=== PATIENT | female | born 1990 | race Asian ===

== ENCOUNTER 2019-11-26 17:50 | Inpatient (IN) ==
[2019-11-26] MEDS ORDERED: OXYTOCIN 30 UNITS/500 ML BAG IV PRN (18:25)
[2019-11-26] MEDS ORDERED: LACTATED RINGER'S 1,000 ML IV PRN (18:25)
[2019-11-26] MEDS ORDERED: LACTATED RINGER'S 1,000 ML IV SCH ×2 (18:30→19:28)
[2019-11-26 18:58] LABS: Hematocrit (blood only) 35.7 % (37-47); Mean Corpuscular Hemoglobin 31.1 pg (25-34); Mean Corpuscular Volume 92.5 fL (80-100); Mean Platelet Volume 11.7 fL (7.4-10.4); Platelet Count 237 K/uL (130-400); RDW Coefficient of Variation 13.7 % (11.5-14.5); RDW Standard Deviation 46.3 fL (36.4-46.3); Red Blood Count 3.86 M/uL (4.2-5.4); White Blood Count 10.92 K/uL (4.8-10.8)
[2019-11-26 19:02] LABS: Mean Corpuscular Hgb Conc 33.6 g/dL (32-36)
[2019-11-26] MEDS ORDERED: INFLUENZA VIRUS QUAD VACCINE 0.5 ML SYR IM ONE (19:26)
[2019-11-26] MEDS ORDERED: INFLUENZA ADMINISTRATION CHARGE ONE (19:26)
[2019-11-26] MEDS ORDERED: CITRIC ACID/SODIUM CITRATE 15 ML UDC PO SCH (19:45)
[2019-11-26] MEDS ORDERED: CEFAZOLIN 2000MG 2,000 MG/15 ML SYR IV SCH (19:45)
--- NOTE | 2019-11-26 19:48 | History & Physical Report ---
Date of Service November 26, 2019 Assessment & Plan (1) Premature rupture of membranes: (2) Vaginal septum affecting , antepartum: - heart rate tracing category 1 -No uterine activity on monitor -While the patient was aware of the possible uterine septum, she was not aware of the vaginal septum- -discussed with the patient the concerns of the pliability of the septum -Vagina very narrow at apex where septum meets the cervix -Concern about dilation of the septum in labor versus traumatic tearing of the septum -Because of the thickness and narrowness of the vagina, recommend section -Patient in partner ask multiple questions about the septum as well as the section -After a 90-minute discussion, the patient consents to the section -Risks, benefits, and alternatives to the discussed -Permit has been signed -Anesthesia and pediatrics notified History of Present Illness Primary Care Provider: NO PCP The patient is a 29-year-old 1 para 0 with an EDC of 05 December at 38+ weeks gestational age who presents to labor and delivery with spontaneous rupture of membranes. The patient was seen in the office today for an OB check and had a cervical examination. Afterward she began leaking fluid clear in nature she denies contractions. The patient transferred her obstetrical care to our practice at 24 weeks from [place]. Medical records were available from [place]. 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 She had growth scans done here which showed appropriate interval growth. At the patient's first digital examination at approximately 36 weeks gestational age a complete vaginal spec septum was noted extending the length of the vagina. The patient was unaware of the vaginal septum. Laboratory values for the show blood type of O+, antibody negative, rubella immune, hepatitis B negative, she had a normal 1 hour Glucola 28 weeks, and a negative third trimester beta strep culture. Allergies Allergy/AdvReac Type Severity Reaction Status Date / Time No Known Allergies Allergy Verified 11/26/19 08:34 Home Medications Home Medications Medication Instructions Recorded Confirmed Type breast pump #1 ea 11/09/19 11/26/19 Rx breast pump #1 ea 11/09/19 11/26/19 Rx vit 10-iron fum-folic 1 tab PO DAILY 11/26/19 11/26/19 History Patient History Medical History (Updated 11/26/19 @ 18:24 by Jacek Medina Jr, MD, FACOG) Abnormal biochemical finding on screening of mother Cervical cancer screening Family History (Updated 09/01/19 @ 14:06 by Ijeoma Vazquez) Father Hypertension Social History (Updated 09/01/19 @ 14:19 by Ijeoma Vazquez) Preferred Language: Peruvian Communication Ability: Effective Salvager Required: No Beliefs That Will Affect Care: None marital status: marital status details: Jaskaran DIAZ (31) [phone] Current Living Situation: Spouse Current Living Situation Comment: lives with spouse, no pets. 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 Cervix on the left side of the septum. Sterile speculum examination with gross rupture. Digital examination shows the cervix to be 2 to 3 cm dilated 75% and - 2. Minimal mobility of vaginal septum with thickness of approximately 1/2 cm. Results & Data Vital Signs (Past 12 Hours) Vital Signs Temp Pulse Resp BP 11/26/19 19:29 98.6 F 81 20 139/90 11/26/19 18:20 99.0 F 75 20 129/83 11/26/19 18:04 81 135/91 Coding Level of Care Code None Diagnoses Premature rupture of membranes O42.90 Vaginal septum affecting , antepartum O34.60; Q52.10
--- NOTE | 2019-11-26 20:07 | Anesthesiology Consultation ---
Date of Service November 26, 2019 Assessment & Plan (1) Encounter for pre-operative examination: Chart Review Chart Review: Patient NOT seen in Pre Admission Testing Please see below for note on patients acceptability for surgery Consults Requested none ASA [id number] Proposed Anesthesia Anesthesia Type: Spinal Risk / Benefits Reviewed With: PT / POA / Parent / Guardian, Accepts Plan and Informed Consent Obtained Additional Notes Patient resting comfortably without visible pain from contractions. She is currently dilated 2/3 cm and ruptured. Primip. Informed Dr. Medina that patient is not appropriately NPO and that we should only proceed if this is an immediate life threatening emergency for the mother or the baby. Dr. Medina stating this is an emergency and must be performed immediately. Patient and informed of increased aspiration risk if we proceed. History Surgery Operation Date: 11/26/19 19:45 Proposed Procedures p Section in - Jacek Elvia Medina Jr, MD, FACOG Height/Weight Height: 5 ft 5.75 in Weight: 73.936 kg Allergies Allergy/AdvReac Type Severity Reaction Status Date / Time No Known Allergies Allergy Verified 11/26/19 08:34 Medications Home Medications Medication Instructions Recorded Confirmed Last Taken breast pump #1 ea 11/09/19 11/26/19 Unknown breast pump #1 ea 11/09/19 11/26/19 Unknown vit 10-iron fum-folic 1 tab PO DAILY 11/26/19 11/26/19 11/26/19 1 Active Medications Generic Name Dose Route Start Last Admin Trade Name Freq PRN Reason Stop Dose Admin Lactated Ringer's 1,000 mls @ 125 mls/hr 11/26/19 19:28 11/26/19 20:05 Lr IV 12/26/19 19:27 125 mls/hr .Q8H MARQUISE Administration NPO Date Last Intake of Fluids: 11/26/19 Time Last Intake of Fluids: 19:30 Date Last Intake of Solids: 11/26/19 Time Last Intake of Solids: 13:00 Past Medical History Medical History Abnormal biochemical finding on screening of mother Cervical cancer screening Exercise / Class Metabolic Activity II 4-5 Yardwork/Stairs/Walk up hill Past Family History Family History Father Hypertension Past Anesthesia History No Family Hx of Anesthesia Complications History of PONV Hx of Motion Sickness Social History Smoking Status: Never smoker Do You Dip or Chew Tobacco: No Hx Alcohol Use: No Hx Substance Use: No Review of Systems Patient denies active symptoms of GERD. Patient denies history of abnormal bleeding or bleeding disorder. Patient denies active use of anticoagulants other than low dose aspirin. Patient denies numbness, tingling or weakness in lower extremities. Physical Exam Vital Signs Last Vital Signs Temp 37.0 C 11/26/19 19:29 Pulse 81 11/26/19 19:29 Resp 20 11/26/19 19:29 BP 139/90 11/26/19 19:29 Constitutional not obese (Gravid uterus) ENMT Mouth: no TMJ abnormality and oral opening not small Thyromental Distance: > or= 3.5 Finger Breadths Mallampati Class: II Neck normal visual inspection; neck extension not limited Respiratory normal respiratory effort Auscultation: lungs clear to auscultation bilaterally Cardiovascular Rate/Rhythm: regular rate and regular rhythm Heart Sounds: no murmur Neurologic moves all extremities Motor/Sensory: no sensory deficit Psychiatric Orientation: alert and oriented x 3 Testing Laboratory Results 11/26/19 18:44 Blood Type O Positive 11/26/19 18:44 Antibody Screen NEGATIVE 11/26/19 18:44
[2019-11-26] MEDS ORDERED: fentaNYL citrate 100 MCG/2 ML VIAL ONE (20:19)
[2019-11-26] MEDS ORDERED: MoRPHine SULFATE PF 1 MG/ML 10 ML AMP/VIAL ONE (20:19)
[2019-11-26] MEDS ORDERED: HYDROmorphone INJ 0.5 MG/0.5 ML SYR IV PRN (20:59)
[2019-11-26] MEDS ORDERED: NALOXONE HCL 0.4 MG/1 ML VIAL/CARP IV PRN (20:59)
[2019-11-26] MEDS ORDERED: ePHEDrine sulfate 50 MG/ML AMP IV PRN (20:59)
[2019-11-26] MEDS ORDERED: NALOXONE HCL 1 MG in SODIUM CHLORIDE 0.9% 1000ML 1,000 ML IV PRN (20:59)
[2019-11-26] MEDS ORDERED: LACTATED RINGER'S 500 ML IV PRN (20:59)
[2019-11-26] MEDS ORDERED: KETOROLAC 30 MG/ML VIAL IV PRN (20:59)
[2019-11-26] MEDS ORDERED: NALBUPHINE HCL INJ 10 MG/ML AMP IV PRN (20:59)
[2019-11-26] MEDS ORDERED: ACETAMINOPHEN 1000 MG/100 ML IV IV PRN (20:59)
[2019-11-26] MEDS ORDERED: MoRPHine SULFATE PF 1 MG/ML 10 ML AMP/VIAL INT SPINAL ONE (20:59)
[2019-11-26] MEDS ORDERED: ONDANSETRON INJ 2 MG/ML 2 ML VIAL IV PRN (20:59)
[2019-11-26] MEDS ORDERED: DiphenhydrAMINE HCL 50 MG/ML VIAL IV PRN (20:59)
[2019-11-26] MEDS ORDERED: NALOXONE HCL 0.08 MG in SYRINGE 1.8 ML IV PRN (20:59)
[2019-11-26] MEDS ORDERED: DC INTRASPINAL MORPHINE SCH (21:00)
[2019-11-26] MEDS ORDERED: SODIUM CHLORIDE 0.9% 1000ML 1,000 ML IV SCH (21:00)
[2019-11-26] MEDS ORDERED: NO NARCOTICS OR SEDATIVES SCH (21:00)
[2019-11-26] MEDS ORDERED: OXYTOCIN 10 UNITS/ML VIAL ONE (21:09)
[2019-11-26] MEDS ORDERED: ONDANSETRON INJ 2 MG/ML 2 ML VIAL ONE (21:09)
--- NOTE | 2019-11-26 21:17 | Post Operative Brief Note ---
PG Immediate Post Op with CF Date of Surgery November 26, 2019 Pre & Post Diagnosis Operation Date: 11/26/19 19:45 Pre-Op Diagnosis: (1) Premature rupture of membranes: (2) Vaginal septum affecting , antepartum: Post-Op Diagnosis: Same as above. I identified the patient and participated in the time-out.: Yes Procedure Operation Date: 11/26/19 19:45 Actual Procedures p Section in LD Live Female @ 2050 - Jacek Medina Jr, MD, FACOG Surgeon Jacek Medina Jr, MD, FACOG Electrical Integrator L&D Nurse Estimated Blood Loss 800 Findings See Below (viable female, Apgars 8/9; gasses pending, normal appearing tubes and ovaries, complete uterine septum) Drains Bear Catheter (Patent and draining clear yellow urine)
[2019-11-26 21:26] LABS: Base Excess Cord Arterial Bld -0.8 mEq/L (-9-1.8); CO2 Cord Arterial Blood 46 mmHg (39.1-73.5); HCO3 Cord Arterial Blood 25 mmol/L (19.7-28.5); PO2 Cord Arterial Blood 26 mmHg (4.1-31.7); pH Cord Arterial Blood 7.36 (7.1-7.38)
[2019-11-26 21:35] LABS: Base Excess Cord Venous Blood -1.1 mEq/L (-7.7-1.9); Cord Venous Blood HCO3 23 mmol/L (18.4-26.8); Cord Venous Blood PCO2 36 mmHg (30.4-57.2); Cord Venous Blood PO2 28 mmHg (14.1-43.3); Cord Venous Blood pH 7.42 (7.20-7.44)
[2019-11-26 21:39] LABS: Oxygen Sat Cord Arterial Blood < 60.0 % (<60)
[2019-11-26] MEDS ORDERED: DIPHTHERIA/TETANUS/PERTUSSIS 0.5 ML SYR/VIAL IM ONE (21:44)
[2019-11-26] MEDS ORDERED: BENZOCAINE 20% AER SPR 82.5 GM CAN EXT PRN (21:44)
[2019-11-26] MEDS ORDERED: HYDROCORTISONE ACETATE 25 MG SUPP PR PRN (21:44)
[2019-11-26] MEDS ORDERED: SUPERCREAM 0.870% 15 GM JAR EXT PRN (21:44)
[2019-11-26] MEDS: OXYTOCIN 20 UNITS in LACTATED RINGER'S 1,000 ML IV SCH (22:01)
--- NOTE | 2019-11-26 22:43 | Anesthesiology Progress Note ---
Date of Service November 26, 2019 Anesthesia Post Procedure Vital Signs Vital Signs: Temp Pulse Resp BP Pulse Ox 11/26/19 22:37 95 H 98 11/26/19 22:36 87 113/78 11/26/19 22:32 84 99 11/26/19 22:27 37.0 C 87 18 153/81 H 98 11/26/19 22:22 93 H 98 11/26/19 22:18 78 148/82 H 11/26/19 22:17 85 18 145/99 H 99 11/26/19 22:12 87 98 11/26/19 22:07 87 18 139/89 100 11/26/19 22:02 90 100 11/26/19 21:57 88 18 129/80 100 11/26/19 21:52 84 99 11/26/19 21:50 90 123/63 11/26/19 21:47 81 18 100 11/26/19 21:42 83 100 11/26/19 21:37 80 18 117/66 100 11/26/19 21:32 86 100 11/26/19 21:27 36.6 C 88 18 140/71 100 11/26/19 19:29 37.0 C 81 20 139/90 11/26/19 18:20 37.2 C 75 20 129/83 11/26/19 18:04 81 135/91 Transfer of Care Handoff Completed per policy Notes Mental Status: alert / awake / arousable and participated in evaluation Nausea / Vomiting: adequately controlled Pain: adequately controlled Airway Patency, RR, SpO2: stable & adequate BP & HR: stable & adequate Hydration State: stable & adequate Neuraxial Anesthesia: was administered and sensory block is resolving Anesthetic Complications: no major complications apparent and Pt Satisfied with anesthetic care
--- NOTE | 2019-11-27 02:58 | Operative Report (OR) ---
DATE OF OPERATION: 11/26/2019 PREOPERATIVE DIAGNOSES: 1. Term . 2. Premature rupture of membranes. 3. Vaginal septum complicating . POSTOPERATIVE DIAGNOSES: 1. Term . 2. Complete uterine septum. PROCEDURE PERFORMED: Primary low cervical transverse section. SURGEON: Jacek Medina MD ANESTHESIA: Spinal. FINDINGS: Viable female with Apgars of 8 and 9. Arterial and venous cord gases are pending. Normal appearing tubes and ovaries bilaterally. Complete uterine septum with on right side of the septum. PROCEDURE IN DETAIL: The patient was taken to the operating room and after spinal anesthesia, was placed in supine position and draped and prepped in the usual fashion. Pfannenstiel type incision was made. Underlying subcutaneous tissue was dissected down to the ventral abdominal fascia, which was nicked and opened in a horizontal manner. Preperitoneal fascia was dissected away until the peritoneal cavity was entered and opened in a vertical manner. Bladder blade was placed. Peritoneum overlying the uterus was elevated, opened in a semi-lunar fashion, the inferior margin which was taken down creating the bladder flap. Uterus was entered sharply and extended in a semilunar fashion manually. Viable female was delivered. Cord was clamped and cut and the baby was passed off to pediatrics who was in attendance for the delivery. Cord gases, cord blood samples were obtained. Placenta was delivered spontaneously and sent for pathological evaluation. Uterus was exteriorized. Uterine cavity was wiped clean of any residual blood tissue and/or clot. A complete uterine septum was noted running from the fundus all the way down to the cervix. The uterine incision was then closed with 2 layers of 4-0 Vicryl, the first a running locking stitch, the second an imbricating stitch. Hemostasis achieved and the uterus was returned to the pelvic cavity. The pericolic gutters were cleared bilaterally of any blood tissue and/or clot. The pelvis was thoroughly irrigated with 1000 mL of warm saline and removed. All pedicles were inspected for hemostasis, which was present. Sponge and needle count was correct. The rectus muscle was plicated in the midline with a running 2-0 Vicryl stitch. The fascia was closed laterally with a running 0 Vicryl suture. Subcutaneous tissue was irrigated with warm saline and then reapproximated with interrupted 2-0 plain sutures. The skin incision was closed with a 4-0 Monocryl subcuticular stitch. Sterile dressing was applied. The patient was taken to the recovery room in satisfactory condition. I attest to the content of the Intraoperative Record and any orders documented therein. Any exception s are noted below.
[2019-11-27] MEDS: OXYTOCIN 20 UNITS in LACTATED RINGER'S 1,000 ML IV SCH (06:12)
--- NOTE | 2019-11-27 06:44 | Obstetrical Progress Note ---
Date of Service <Randa Newton DO - Last Filed: 11/27/19 06:48> November 27, 2019 Assessment & Plan <Randa Newton DO - Last Filed: 11/27/19 06:48> (1) Encounter for care and examination after delivery: 29 yo POD #1 from section for vaginal septum in the setting of PROM. Doing well today and without complaints. - continue routine care. - encouraged ambulation today and SCDs when in bed. - following discharge will need follow up with Dr. Medina in 6 weeks. Subjective <Randa Newton DO - Last Filed: 11/27/19 06:48> Robby is a 29 yo female ; POD # 1 following section delivery at 38 weeks for vaginal septum in the setting of PROM; doing well this AM; minimal pain at incision site; had velez taken out this morning, no passing gas yet. No shortness of breath, chest pain, headaches, dizziness. 24 Hour I/Os: Intake: 1008 Output: 1125 Review of Systems Constitutional: denies fever, chills, sweats, headache Respiratory: denies SOB, difficulty breathing Cardiac: denies CP, chest palpitations, chest pressure Breast: denies breast pain : denies dysuria Physical Exam <Randa Newton - Last Filed: 11/27/19 06:48> General: patient is alert and oriented, in NAD Cardiac: +S1/S2, no murmurs rubs or gallops Respiratory: lungs CTA b/l, anteriorly and posteriorly, no wheezes rales or rhonchi, no increased work of breathing, symmetric chest rise, no respiratory distress Abdomen: soft, NT, +bowel sounds Uterus: uterine fundus firm, palpable below the level of the umbilicus. Incision intact, non-tender, non-erythematous, no weeping from incision site Lower Extremities: no LE edema or swelling, no deep calf pain, Eileen's sign negative b/l Results & Data <Randa Newton - Last Filed: 11/27/19 06:48> Vital Signs (Past 12 Hours) Vital Signs Temp Pulse Pulse Resp BP BP Pulse Ox 11/27/19 06:15 18 97 11/27/19 05:35 18 97 11/27/19 04:15 18 99 11/27/19 03:30 37.5 C 87 18 108/70 97 11/27/19 02:30 20 99 11/27/19 01:00 37.4 C 83 20 120/75 98 11/27/19 00:00 37.0 C 82 20 125/71 99 11/26/19 23:44 90 91 11/26/19 23:42 82 99 11/26/19 23:37 90 122/72 97 11/26/19 23:32 92 H 96 11/26/19 23:27 37.3 C 90 18 114/68 96 11/26/19 23:25 90 94 11/26/19 23:22 91 H 96 11/26/19 23:17 86 125/78 98 11/26/19 23:12 86 97 11/26/19 23:07 82 131/79 98 11/26/19 23:02 87 96 11/26/19 22:57 85 18 134/71 97 11/26/19 22:52 83 98 11/26/19 22:47 89 143/72 H 97 11/26/19 22:42 89 97 11/26/19 22:37 95 H 98 11/26/19 22:36 87 113/78 11/26/19 22:32 84 99 11/26/19 22:27 37.0 C 87 18 153/81 H 98 11/26/19 22:22 93 H 98 11/26/19 22:18 78 148/82 H 11/26/19 22:17 85 18 145/99 H 99 11/26/19 22:12 87 98 11/26/19 22:07 87 18 139/89 100 11/26/19 22:02 90 100 11/26/19 21:57 88 18 129/80 100 11/26/19 21:52 84 99 11/26/19 21:50 90 123/63 11/26/19 21:47 81 18 100 11/26/19 21:42 83 100 11/26/19 21:37 80 18 117/66 100 11/26/19 21:32 86 100 11/26/19 21:27 36.6 C 88 18 140/71 100 11/26/19 19:29 37.0 C 81 20 139/90 Laboratory Results Laboratory Results - last 24 hr 11/26/19 11/26/19 11/26/19 18:44 18:44 20:51 WBC 10.92 H RBC 3.86 L Hgb 12.0 Hct 35.7 L MCV 92.5 MCH 31.1 MCHC 33.6 RDW Std Deviation 46.3 RDW Coeff of Kimberly 13.7 Plt Count 237 MPV 11.7 H Cord ABG pH 7.36 Cord ABG pCO2 46 Cord ABG pO2 26 Cord ABG HCO3 25 Cord ABG Base Excess -0.8 Cord ABG O2 Sat < 60.0 Cord VBG pH Cord VBG pCO2 Cord VBG pO2 Cord VBG HCO3 Cord VBG Base Excess Cord VBG O2 Sat Barometric Pressure 729.5 Blood Gas Comments A Blood Type O Positive Antibody Screen NEGATIVE 11/26/19 20:51 WBC RBC Hgb Hct MCV MCH MCHC RDW Std Deviation RDW Coeff of Kimberly Plt Count MPV Cord ABG pH Cord ABG pCO2 Cord ABG pO2 Cord ABG HCO3 Cord ABG Base Excess Cord ABG O2 Sat Cord VBG pH 7.42 Cord VBG pCO2 36 Cord VBG pO2 28 Cord VBG HCO3 23 Cord VBG Base Excess -1.1 Cord VBG O2 Sat 64.0 Barometric Pressure 729.5 Blood Gas Comments A Blood Type Antibody Screen Medications Administered Current Medications Acetaminophen (Ofirmev) 1,000 mg IV Q8 PRN PRN Reason: Pain Stop: 11/27/19 15:58 Benzocaine (Dermoplast Pain Relieving [place]) 1 appln EXT UD PRN PRN Reason: use on skin as needed Stop: 12/26/19 21:43 Cocaine HCl (Supercream 0.870%) 1 gm EXT UD PRN PRN Reason: hemmorrhoidal inflammation Stop: 12/10/19 21:43 Diphenhydramine HCl (Benadryl) 25 mg IV Q6H PRN PRN Reason: pruritis Stop: 11/27/19 14:59 Diphenhydramine HCl (Benadryl Capsule) 25 mg PO QID PRN PRN Reason: Itching Stop: 12/27/19 14:58 Diphenhydramine HCl (Benadryl) 25 mg IV QID PRN PRN Reason: Itching Stop: 12/27/19 14:58 Ephedrine Sulfate (Ephedrine Sulfate) 10 mg IV Q5M PRN PRN Reason: Hypotension Stop: 11/27/19 14:59 Ferrous Sulfate (Feosol) 325 mg PO DAILY@08 MARQUISE Stop: 12/27/19 07:59 Hydrocortisone (Anusol Hc) 25 mg [place] BID PRN PRN Reason: Hemorrhoids Stop: 12/26/19 21:43 Hydromorphone HCl (Dilaudid) 0.25 mg IV Q4H PRN PRN Reason: Breakthrough Surgical Pain Stop: 11/27/19 15:00 Sodium Chloride (Nss 1000ml) 1,000 mls @ 15 mls/hr IV .Q24H MARQUISE Stop: 11/27/19 14:59 Naloxone HCl 1 mg/ Sodium (Chloride) 1,002.5 mls @ 50 mls/hr IV .Q20H3M PRN PRN Reason: itching or nausea Stop: 11/27/19 14:59 Lactated Ringer's (Lr) 500 mls @ 999 mls/hr IV .Q31M PRN PRN Reason: Hypotension Stop: 11/27/19 14:59 Naloxone HCl 0.08 mg/ Syringe 2 mls @ 1 mls/min IV Q30M PRN; Protocol PRN Reason: Urinary Retention Stop: 11/27/19 14:59 Lactated Ringer's (Lr) 1,000 mls @ 125 mls/hr IV .Q8H MARQUISE Stop: 12/27/19 13:59 Oxytocin 20 units/ Lactated (Ringer's) 1,002 mls @ 125 mls/hr IV .Q8H1M MARQUISE Stop: 11/27/19 13:45 Last Infusion: 11/27/19 06:15 Dose: 125 mls/hr Documented by: Ibuprofen (Motrin) 600 mg PO Q4H PRN PRN Reason: Pain Stop: 12/27/19 14:58 Ketorolac Tromethamine (Toradol) 30 mg IV Q6H PRN PRN Reason: Breakthrough Surgical Pain Stop: 11/27/19 15:00 Ketorolac Tromethamine (Toradol) 30 mg IV Q6H PRN PRN Reason: Pain Stop: 12/02/19 14:58 Magnesium Hydroxide (Milk Of Magnesia) 30 ml PO HS MARQUISE Stop: 12/27/19 20:59 Miscellaneous (No Narcotics Or Sedatives) 1 ea N/A UD MARQUISE Stop: 11/27/19 14:59 Miscellaneous Information (Dc Intraspinal Morphine) 1 ea N/A UD MARQUISE Stop: 11/27/19 14:59 Nalbuphine HCl (Nubain) 5 mg IV Q10M PRN PRN Reason: itching or nausea Stop: 11/27/19 14:59 Naloxone HCl (Narcan) 0.1 mg IV UD PRN PRN Reason: Respiratory Depression Stop: 11/27/19 14:59 Ondansetron HCl (Zofran) 4 mg IV Q6H PRN PRN Reason: Nausea And Vomiting Stop: 11/27/19 15:00 Ondansetron HCl (Zofran) 4 mg IV Q4H PRN PRN Reason: Nausea And Vomiting Stop: 12/27/19 14:58 Oxycodone/Acetaminophen (Percocet 5mg/325mg) 1 - 2 tab PO Q4H PRN PRN Reason: Pain Stop: 12/11/19 14:58 Prenat Multivit/[place]/Iron/Folic Ac ( Vitamin) 1 tab PO DAILY@08 MARQUISE Stop: 12/27/19 07:59 Sennosides (Senokot) 17.2 mg PO HS MARQUISE Stop: 12/27/19 20:59 <Jacek Medina Jr, MD, FACOG - Last Filed: 11/27/19 07:20> Co-Signing Physician Notes Resident Physician Supervision Note: I was present with Dr. Burrell during the history and exam. I discussed the case with the resident and agree with the findings and plan as documented in the note. Any exceptions or clarifications are listed here: Discussed surgery and findings with patient. Routine post-op care. Documented By: Jacek Medina Jr, MD, FACOG Resident Activity Tracking <Randa Newton DO - Last Filed: 11/27/19 06:48> Resident Involvement: Resident Care Provided Care Provided: OB Delivery
[2019-11-27 07:03] LABS: Basophils # (auto) 0.01 K/uL (0-0.2); Basophils % (auto) 0.1 %; Eosinophils # (auto) 0.05 K/uL (0-0.5); Eosinophils % (auto) 0.4 %; Hematocrit (blood only) 31.5 % (37-47); Hemoglobin 10.3 g/dL (12.0-16.0); Immature Granulocytes # (auto) 0.05 K/uL (0.00-0.02); Immature Granulocytes % (auto) 0.4 %; Lymphocytes # (auto) 1.89 K/uL (1.2-3.4); Lymphocytes % (auto) 13.9 %; Mean Corpuscular Hemoglobin 30.5 pg (25-34); Mean Corpuscular Hgb Conc 32.7 g/dL (32-36); Mean Corpuscular Volume 93.2 fL (80-100); Mean Platelet Volume 11.5 fL (7.4-10.4); Monocytes # (auto) 0.63 K/uL (0.11-0.59); Monocytes % (auto) 4.6 %; Neutrophils # (auto) 10.98 K/uL (1.4-6.5); Neutrophils % (auto) 80.6 %; Platelet Count 198 K/uL (130-400); RDW Coefficient of Variation 13.6 % (11.5-14.5); RDW Standard Deviation 46.3 fL (36.4-46.3); Red Blood Count 3.38 M/uL (4.2-5.4); White Blood Count 13.61 K/uL (4.8-10.8)
[2019-11-27] MEDS: FERROUS SULFATE 325 MG TAB PO SCH (10:02)
[2019-11-27] MEDS: PRENATAL VITAMIN 1 TAB PO SCH (10:02)
[2019-11-27] MEDS ORDERED: LACTATED RINGER'S 1,000 ML IV SCH (14:00)
[2019-11-27] MEDS ORDERED: DiphenhydrAMINE HCL 50 MG/ML VIAL IV PRN (14:59)
[2019-11-27] MEDS ORDERED: KETOROLAC 30 MG/ML VIAL IV PRN (14:59)
[2019-11-27] MEDS ORDERED: ONDANSETRON INJ 2 MG/ML 2 ML VIAL IV PRN (14:59)
[2019-11-27] MEDS: IBUPROFEN 600 MG TAB PO PRN (18:48)
[2019-11-27] MEDS: OXYCODONE/ACETAMINOPHEN 5mg/325mg TAB PO PRN (18:49)
[2019-11-27] MEDS: SENNA 8.6 MG TAB PO SCH (20:52)
[2019-11-27] MEDS: MAGNESIUM HYDROXIDE SUSP 30 ML UDC PO SCH (20:52)
[2019-11-28] MEDS: OXYCODONE/ACETAMINOPHEN 5mg/325mg TAB PO PRN ×4 (01:36→14:38)
[2019-11-28] MEDS: IBUPROFEN 600 MG TAB PO PRN ×4 (01:37→14:38)
[2019-11-28 06:50] LABS: Hematocrit (blood only) 31.1 % (37-47); Hemoglobin 10.2 g/dL (12.0-16.0)
--- NOTE | 2019-11-28 07:37 | Obstetrical Progress Note ---
Date of Service <Randa Newton DO - Last Filed: 11/28/19 08:13> November 28, 2019 Assessment & Plan <Randa Newton DO - Last Filed: 11/28/19 08:13> (1) Encounter for care and examination after delivery: 29 yo POD #2 from section for vaginal septum in the setting of PROM. Doing well today and without complaints. - continue routine care. - encouraged ambulation and SCDs when in bed. - following discharge will need follow up with Dr. Medina in 6 weeks. Subjective <Randa Newton DO - Last Filed: 11/28/19 08:13> Robby is a 29 yo female ; POD # 2 following section delivery at 38 weeks for vaginal septum in the setting of PROM; doing well this AM; some pain with walking alleviated with PRN pain medications; voiding well, passing gas but no BM. No shortness of breath, chest pain, headaches, dizziness. which is going well. Review of Systems Constitutional: denies fever, chills, sweats, headache Respiratory: denies SOB, difficulty breathing Cardiac: denies CP, chest palpitations, chest pressure Breast: denies breast pain : denies dysuria Physical Exam <Randa Newton DO - Last Filed: 11/28/19 08:13> General: patient is alert and oriented, in NAD Cardiac: +S1/S2, no murmurs rubs or gallops Respiratory: lungs CTA b/l, anteriorly and posteriorly, no wheezes rales or rhonchi, no increased work of breathing, symmetric chest rise, no respiratory distress Abdomen: soft, NT, +bowel sounds Uterus: uterine fundus firm, palpable below the level of the umbilicus. Incision intact, non-tender, non-erythematous, no weeping from incision site Lower Extremities: no LE edema or swelling, no deep calf pain, Eileen's sign negative b/l Results & Data <Randa Newton DO - Last Filed: 11/28/19 08:13> Vital Signs (Past 12 Hours) Vital Signs Temp Pulse Resp BP Pulse Ox 11/28/19 07:15 36.7 C 80 14 111/78 98 11/28/19 00:00 36.6 C 81 18 108/70 11/27/19 20:55 36.7 C 87 18 118/72 97 Laboratory Results Laboratory Results - last 24 hr 11/28/19 06:23 Hgb 10.2 L Hct 31.1 L Medications Administered Current Medications Benzocaine (Dermoplast Pain Relieving [place]) 1 appln EXT UD PRN PRN Reason: use on skin as needed Stop: 12/26/19 21:43 Cocaine HCl (Supercream 0.870%) 1 gm EXT UD PRN PRN Reason: hemmorrhoidal inflammation Stop: 12/10/19 21:43 Diphenhydramine HCl (Benadryl Capsule) 25 mg PO QID PRN PRN Reason: Itching Stop: 12/27/19 14:58 Ferrous Sulfate (Feosol) 325 mg PO DAILY@08 [facility] Stop: 12/27/19 07:59 Last Admin: 11/27/19 10:02 Dose: 325 mg Documented by: Hydrocortisone (Anusol Hc) 25 mg [place] BID PRN PRN Reason: Hemorrhoids Stop: 12/26/19 21:43 Ibuprofen (Motrin) 600 mg PO Q4H PRN PRN Reason: Pain Stop: 12/27/19 14:58 Last Admin: 11/28/19 01:37 Dose: 600 mg Documented by: Magnesium Hydroxide (Milk Of Magnesia) [address] [facility] Stop: 12/27/19 20:59 Last Admin: 11/27/19 20:52 Dose: 30 ml Documented by: Oxycodone/Acetaminophen (Percocet 5mg/325mg) 1 - 2 tab PO Q4H PRN PRN Reason: Pain Stop: 12/11/19 14:58 Last Admin: 11/28/19 01:36 Dose: 1 tab Documented by: Prenat Multivit/Pst Supervisor/Iron/Folic Ac ( Vitamin) 1 tab PO DAILY@08 [facility] Stop: 12/27/19 07:59 Last Admin: 11/27/19 10:02 Dose: 1 tab Documented by: Sennosides (Senokot) 17.[address] [facility] Stop: 12/27/19 20:59 Last Admin: 11/27/19 20:52 Dose: 17.2 mg Documented by: <Larry Wagner MD - Last Filed: 11/28/19 08:40> Co-Signing Physician Notes Patient seen and evaluated and agree with the above findings and plan. Routine post care Resident Activity Tracking <Rnada Newton DO - Last Filed: 11/28/19 08:13> Resident Involvement: Resident Care Provided Care Provided: OB Delivery
[2019-11-28] MEDS ORDERED: Nursing to Pharmacy Communication ONE (07:39)
[2019-11-28] MEDS: PRENATAL VITAMIN 1 TAB PO SCH (08:48)
[2019-11-28] MEDS: FERROUS SULFATE 325 MG TAB PO SCH (08:48)
[2019-11-28 15:02] VITALS: O2SAT 97
[2019-11-28] MEDS: SENNA 8.6 MG TAB PO SCH (20:13)
[2019-11-28] MEDS: MAGNESIUM HYDROXIDE SUSP 30 ML UDC PO SCH (20:13)
[2019-11-29] MEDS: IBUPROFEN 600 MG TAB PO PRN ×2 (03:04→08:54)
[2019-11-29] MEDS: OXYCODONE/ACETAMINOPHEN 5mg/325mg TAB PO PRN ×2 (03:04→08:54)
--- NOTE | 2019-11-29 08:53 | Obstetrical Progress Note ---
Date of Service November 29, 2019 Assessment & Plan (1) Supervision of normal first : POD#3 doing well. DC instructions discussed. Followup in office in 6w. Subjective Ambulation: ambulating normally Voiding: no voiding problems Diet Tolerance:: regular diet Lochia:: Moderate POD#3 doing well. No concerns. Ambulating, , eating/drinking well. Review of Systems All systems reviewed & are unremarkable except as noted in HPI & below Physical Exam Constitutional WD/WN, vitals as above no acute distress Respiratory normal respiratory effort Cardiovascular Rate/Rhythm: regular rate and regular rhythm Gastrointestinal (Abdomen) Inspection/Auscultation: abdomen normal to inspection; abdomen not distended Percussion/Palpation: abdomen soft Genitourinary OB Exam Abdomen: + fundal height Fundus: + firm; not tender Results & Data Vital Signs (Past 12 Hours) Vital Signs Temp Pulse Resp BP 11/28/19 23:30 37.3 C 99 H 18 128/84
[2019-11-29] MEDS: PRENATAL VITAMIN 1 TAB PO SCH (08:54)
[2019-11-29] MEDS: FERROUS SULFATE 325 MG TAB PO SCH (08:54)
[2019-11-29 10:16] VITALS: BP 136/86; PULSE 67; TEMP 97.9
--- NOTE | 2019-11-29 18:01 | Discharge Summary ---
Date of Service November 29, 2019 Admission HPI Per Admitting Provider The patient is a 29-year-old 1 para 0 with an EDC of 05 December at 38+ weeks gestational age who presents to labor and delivery with spontaneous rupture of membranes. The patient was seen in the office today for an OB check and had a cervical examination. Afterward she began leaking fluid clear in nature she denies contractions. The patient transferred her obstetrical care to our practice at 24 weeks from [facility]. Medical records were available from [place]. 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 She had growth scans done here which showed appropriate interval growth. At the patient's first digital examination at approximately 36 weeks gestational age a complete vaginal spec septum was noted extending the length of the vagina. The patient was unaware of the vaginal septum. Laboratory values for the show blood type of O+, antibody negative, rubella immune, hepatitis B negative, she had a normal 1 hour Glucola 28 weeks, and a negative third trimester beta strep culture. Discharge Data Consultations 11/26/19 18:25 Consult Anesthesiology Stat Procedures Performed Operation Date: 11/26/19 19:45 Actual Procedures p Section in LD Live Female @ 2050 - Jacek Medina Jr, MD, [facility] Course (1) Premature rupture of membranes: (2) Vaginal septum affecting , antepartum: No uterine activity on monitor -While the patient was aware of the possible uterine septum, she was not aware of the vaginal septum- -discussed with the patient the concerns of the pliability of the septum -Vagina very narrow at apex where septum meets the cervix -Concern about dilation of the septum in labor versus traumatic tearing of the septum -Because of the thickness and narrowness of the vagina, recommend section -Patient in partner ask multiple questions about the septum as well as the section -After a 90-minute discussion, the patient consents to the section -Risks, benefits, and alternatives to the discussed -Permit has been signed -Anesthesia and pediatrics notified The patient was taken to the operating or motion with a primary low cervical transverse section. Operative findings as per note. Uterine septum extended the length of the uterus with the on the right side of the uterus. Postoperatively the patient did well Bear catheter was removed on the 1st postoperative day. By the 3rd postoperative day the patient was ambulating without difficulty and tolerating a regular diet. She was discharged home with routine discharge instructions of the prescriptions for the medications as listed as above. She will follow up in the office for postoperative check but is all she was instructed to call with any questions problems or difficulties. Coding Level of Care Code None Diagnoses Premature rupture of membranes O42.90 Vaginal septum affecting , antepartum O34.60; Q52.10
== END 2019-11-29 15:30 | disposition home or self-care (01) | DRG 788 ==
LOC: OPB 17:50 → 4S1 17:52 → 4S2 11-27 00:02